=== PATIENT | female | born 1995 | race Two or more races ===

== ENCOUNTER 2024-03-08 03:43 | Observation (INO) | payer MEDICAID, SELFPAY ==
[2024-03-08] VITALS (64 sets, daily range): BP systolic 97–107; BP diastolic 57–65; PULSE 78–97; RESP 16–97; TEMP 36.9–37; O2SAT 93–98; BMI 33.5
--- NOTE | 2024-03-08 04:30 | XR_ITS ---
Examination: Complete OB ultrasound greater than 14 weeks Date and time of exam: March 08, 2024 1736 hrs. Indications: Abdominal pain beginning today Findings: Viable intrauterine single fetus with single amniotic sac presentation Vertex, transverse, maternal right Cardiac motion 137 BPM Placenta posterior grade 1 Umbilical cord insertion seen Amniotic fluid index 15.8 cm Cervix 3.4 cm Ovaries obscured by bowel gas. Composite estimated gestational age based on BPD, head circumference, abdominal circumference, femur length is 35 weeks 0 days Estimated weight 2569.6 g. Survey of intracranial anatomy, spinal anatomy, abdominal anatomy, four-chamber heart performed with no abnormalities identified. Impression: Viable intrauterine gestation vertex, transverse, maternal right Recommend repeat limited MARCI sonogram at this time with a second medical laboratory technologist to confirm presentation Estimated gestational age 35 weeks 0 days Estimated weight 2569.6 g.
--- NOTE | 2024-03-08 08:02 | PRELIM_ITS ---
Obstetric ultrasound. March 08, 2024 0536 hours Clinical history: Abdominal pain.Comparison: No frances or study is available for comparison. Findings:There is a gravid uterus with a live fetus in vertex ( transverse) maternal right presentation of mean gestational age 35 weeks and 0 days (by biometr y). cardiac activity is present at a heart rate of 137 beats per minute. The placenta is training facilitator ior in location, maturity grade 1. There is no evidence of placenta previa or retroplacental hemorrha ge. Amniotic fluid is adequate (PARAS = 15.8 cm). Estimated weight is 2569.6 grams+/- 380 grams. Estimated due date by ultrasound is 04/12/2024.Cervical length is 3.4 cm Impression:Gravid uterus wit h a single live fetus in vertex (transverse) maternal right presentation of mean gestational age 35 w eeks and 0 days. Report Electronically Signed By: Dawood Camacho 03/08/2024 8:02:30 AM [EST]
== END 2024-03-08 08:28 | disposition home or self-care (01) ==
PROVIDERS: Admitting Provider Obstetrics & Gynecology; Visit Provider Obstetrics & Gynecology
DX: O26.893 Other specified pregnancy related conditions, third trimester (principal); R10.9 Unspecified abdominal pain; Z3A.35 35 weeks gestation of pregnancy
CPT/HCPCS: 59025; 59899; 76805

== ENCOUNTER 2024-04-08 21:30 | Inpatient (IN) | payer MEDICAID, SELFPAY ==
[2024-04-08 21:41] VITALS: BMI 32.5
[2024-04-08 22:08] VITALS: BP 108/62; PULSE 85; TEMP 36.9
[2024-04-08 22:26] LABS: Basophils % (Auto) 0 % (0-2.5); Eosinophils % (Auto) 0 % (0-10); Hematocrit 32.9 % (36.0-46.0); Hemoglobin 11.8 g/dL (12.0-16.0); Immature Granulocytes % (Auto) 1 % (0-0); Immature Granulocytes Auto 0.04 Thou/mm3 (0.00-0.00); Lymphocytes # (Auto) 1.4 Thou/mm3 (1.0-4.8); Lymphocytes % (Auto) 18 % (10-50); Mean Corpuscular HGB Conc 35.9 g/dl (31.0-37.0); Mean Corpuscular Hemoglobin 32.4 pg (25.0-35.0); Mean Corpuscular Volume 90 fL (80-100); Monocytes # (Auto) 0.6 Thou/mm3 (0.0-0.8); Monocytes % (Auto) 8 % (0-12); Neutrophils # (Auto) 5.7 Thou/mm3 (1.8-7.7); Neutrophils % (Auto) 73 % (37-80); Nucleated Red Blood Cell % 0 /100 WBC (0); Platelet Count 225 Thou/mm3 (140-440); Red Blood Count 3.64 Miln/mm3 (4.00-5.20); White Blood Count 7.8 Thou/mm3 (3.6-11.0)
[2024-04-08] MEDS: DINOPROSTONE 10 MG VAG.SUPP VAGINAL (22:33)
[2024-04-08 23:27] LABS: Syphilis Nonreactive (Nonreactive)
[2024-04-09] VITALS (216 sets, daily range): BP systolic 94–187; BP diastolic 52–134; PULSE 57–118; RESP 15–21; TEMP 36.6–37.3; O2SAT 76–100
[2024-04-09 00:45] LABS: Amphetamine/Metham Scrn,Ur OB Negative (Negative); Benzoylecgonine Screen, Ur OB Negative (Negative); Opiate Screen,Urine OB Negative (Negative); THC Screen,Urine OB Negative (Negative)
--- NOTE | 2024-04-09 01:37 | PD.LDHP ---
Documentation for date of: 04/09/24 OB Labor/Induct. HPI History of Present Illness Chief complaint: elective IOL : 3 Para: 1 Term pregnancies: 1 pregnancies: 0 Living children: 0 History of Abortions: Spontaneous and Elective: 1 History of Vaginal deliveries: 1 History of sections: No History of : No Date of last menstrual period: 07/19/23 CESAR: 04/14/24 Gestational Age (weeks): 39 Gestational Age (days): 2 Gestational age based on last menstrual period: 37 Indication for induction: other (elective) History of present illness: Patient presents for scheduled IOL. No painful/regular ctx, no LOF, no vaginal bleeding. Feels normal movement. History of Present Dating criteria: based on 1st trimester US only Adequate Care: Yes Ultrasounds: normal mid trimester US Obstetrical complications: none and other (An early ultrasound showed possible vasa previa, patient had referral to [facility] and subsequent ultrasounds showed NO vasa previa, placenta posterior) Medical complications: none Narrative: G1: 05/30/2018 term VAVD 6lb0oz G2: 12/04/2021 early sab G3: current Labs Labs: Negative: Hepatitis B, HIV, Chlamydia, Gonorrhea and Group Beta Strep Narrative: Normal 2hr glucose testing Review of Systems Review of Systems Narrative Review of Systems: Review of Systems Systems Reviewed: All systems reviewed, normal except as documented Constitutional Constitutional: Denies body ache(s), Denies chills, Denies fever(s) and Denies headache(s) ENT Ears, Nose, Mouth, and Throat: Denies headache(s) and Denies vertigo Cardiovascular Cardiovascular: Denies chest pain, Denies palpitations, Denies dyspnea and Denies syncope Respiratory Respiratory: Denies cough, Denies dyspnea Gastrointestinal Gastrointestinal: Denies nausea and Denies vomiting Neurologic Neurologic: Denies convulsions, Denies headache(s), Denies other visual disturbances, Denies syncope and Denies vertigo Past Medical History Family History OTHER FAMILY HX: Mother and grandparents have diabetes Surgical History SURGICAL: Negative Section OTHER SURGICAL HX: Breast augmentation Social History SOCIAL: Denies tobacco/ETOH/illicit drug use No hx of STIs Past Medical History Comments PMH COMMENT: Starting BMI 27 Meds Home Medications and Allergies Home Medications ?Medication ?Instructions ?Recorded ?Confirmed ?Type vits no.130-ferrous fum 1 tab PO DAILY 12/21/23 04/08/24 History 27 mg iron-folic acid 800 mcg tablet ( Vitamin) Allergies Allergy/AdvReac Type Severity Reaction Status Date / Time No Known Allergies Allergy Verified 04/08/24 22:19 OB Exam Physical Exam Vital signs: Temp Pulse BP 98.4 F 82 122/58 L 04/08/24 22:08 04/09/24 01:21 04/09/24 01:21 Narrative: General: well developed, well nourished, no acute distress, conversant Cardiac: normal heart rate Lungs: breathing without distress Abdomen: soft, gravid, non-tender, no rebound or guarding Extremities: no edema BLE Detailed Labor and Delivery Exam Dilation (cm): 1 Effacement (%): 0 Cervix position: posterior station: -3 Presentation: Vertex Membranes: intact monitor accelerations: 15x15 monitor decelerations: None termite control service representative variability: Moderate (11-25) Contraction frequency (min): irregular OB Results Labs 04/08/24 21:50 Labs: Short CBC 04/08/24 Range/Units 21:50 WBC 7.8 (3.6-11.0) Thou/mm3 Hgb 11.8 L (12.0-16.0) g/dL Hct 32.9 L (36.0-46.0) % Plt Count 225 (140-440) Thou/mm3 OB Assessment & Plan Assessment and Plan (1) Encounter for elective induction of labor: Status: Acute Assessment and plan: Patient is a 28yo with SIUP at 39w2d presenting for scheduled IOL, elective. SCE: 1/thick/high. Vitals wnl, benign exam. Reassuring assessment overall. EFW 7lb by [place]. care: Good care with [facility], records available and reviewed PMhx/PNC significant for: Hx of VAVD with first delivery, starting BMI 27 Plan: -Admit to L&D -Establish IV, routine labs -CEFM -Regular diet [id number], then clear liquid diet in labor -Vehicle Leasing And [employer]ental Manager/consent re: iol and -GBS status: negative -Will initiate IOL with: cervidil -Anticipate -Safe to proceed Sarah Lopez MD
[2024-04-09] MEDS: MISOPROSTOL 50 mCg TABLET 25 MCG VAGINAL (11:09)
--- NOTE | 2024-04-09 11:13 | PD.LDPN ---
Documentation for date of: 04/09/24 OB Labor Progress Note Pelvic Exam Dilation (cm): 1 Effacement (%): 0 station: -3 Contractions Contraction frequency: irregular Assessment and Plan Comments: Intrapartum Note Patient doing well, feels some cramping in her back but not too uncomfortable. Cervidil came out at 1030. Vitals wnl, afebrile Cat I FHRT Ctx q5min SCE: /-2. Cook ann balloon placed (only uterine balloon filled with 40cc sterile water) without incident, well tolerated. 25mcg cytotec placed PV. Plan to await ann bulb falling out and re-check cervix Discussed ok for epidural any time, or IV fentanyl early in labor course if desired Clear liquid diet CEFM Safe to proceed Sarah Lopez MD
[2024-04-09] MEDS: fentaNYL CIT INJ 50 mCg/ML AMP 2ML 100 MCG IV (11:19)
[2024-04-09] MEDS: RINGERS LACTATED 1000 ML 1,000 ML 125 ML IV (15:18)
[2024-04-09] MEDS: OXYTOCIN in NS 30 units 30 UNIT/500 ML BAG IV (17:21)
--- NOTE | 2024-04-09 18:10 | PD.LDPN ---
Documentation for date of: 04/09/24 OB Labor Progress Note Pelvic Exam Dilation (cm): 5 Effacement (%): 50 station: -2 Amniotic membrane status: Ruptured Assessment and Plan Comments: Patient doing well, comfortable with epidural. IV pitocin was initiated and titrating up slowly. Vitals wnl, afebrile Cat I FHRT SCE: 50/-2, AROM performed with clear fluid noted, well tolerated Plan: -Continue to titrate pitocin per protocol to obtain adequate ctx pattern -CEFM -Continue to closely observe -Anticipate -Safe to proceed Sarah Lopez MD
[2024-04-09] MEDS: LIDOCAINE HCL 1% 20 ML VIAL INFL (20:55)
[2024-04-09] MEDS: CARBOPROST TROMETH INJ 250 MCG/ML VIAL IM (21:03)
[2024-04-09] MEDS: TRANEXAMIC ACID 1,000 MG IVPB 1,000 MG/100 ML BAG 200 MG IV (21:08)
[2024-04-09] MEDS: MISOPROSTOL 200 mCg TABLET 800 MCG PR (21:16)
[2024-04-09] MEDS: OXYTOCIN in NS 20 units 20 UNIT/1,000 ML BAG 125 UNIT IV (21:30)
[2024-04-09] MEDS: DIPHENOXYLATE/ATROP SULF 1 TAB PO (21:33)
[2024-04-09] MEDS: IBUPROFEN TAB 400 MG TABLET 800 MG PO (21:47)
[2024-04-09] MEDS: BENZO/LANO/ALOE (Dermoplast) 60 GM CAN 1 SPRAY TOP (21:48)
--- NOTE | 2024-04-09 21:53 | PD.LDDELS ---
Data ([facility]) Data Hx Section: No : 2 Para: 1 Term: 1 : 0 : 0 Delivery Data ([facility]) Labor Data Stimulated/Augmented: Yes Induction: Yes Method: Oxytocin ROM Date: 04/09/24 ROM Time: 17:56 Rupture Type: AROM Amniotic Fluid: Clear Delivery Data Labor Onset Stage 1 Date: 04/09/24 Labor Onset Stage 1 Time: 17:56 Labor Onset Stage 2 Date: 04/09/24 Labor Onset Stage 2 Time: 20:40 Delivery Date: 04/09/24 Delivery Time: 20:52 Placenta Delivery Date: 04/09/24 Placenta Delivery Time: 20:59 Delivered by: Sarah Lopez Delivery nurse: Kyaw Martin Other staff at delivery: Nursery Nurse Other staff at delivery: Selma Young Delivery Method Delivery: Vaginal Delivery Type: Spontaneous Presentation: Vertex Anesthesia Type Primary Anesthesia: Epidural Secondary Anesthesia: Local Placenta Placenta Delivery: Spontaneous EBL Estimated blood loss (ml): 600 Additional Procedures Patient is a 28yo [id number] s/p at 39+2wk after undergoing elective IOL, delivering at 2051 on 04/09/2024. Delivery complicated by PPH, EBL 600ml. On presentation, SCE was 1cm. She progressed with cervidil, nan bulb and cytotec, and then pitocin augmentation at 2mu to C/C/0 at which point she began pushing. She received an epidural. With good maternal pushing efforts, infant's head delivered OA and restituted MATTEO. Left anterior shoulder delivered easily followed by posterior shoulder and corpus. had spontaneous cry and was vigorous. Apgars 9/9. placed on maternal abdomen where nose/mouth were suctioned and infant dried/stimulated. After approximately 1 minute, cord was clamped x2 and cut by FOB. Cord blood collected for typing. Patient began bleeding briskly, and since with fundal massage and cord traction, placenta did not immediately deliver, manual extraction of placenta was performed to address the bleeding. A good plane was developed and the placenta was removed intact with 3 vessel centrally inserted cord. One sweep within uterus retrieved a few small fragments of membranes, but no other POCs retained. Vigorous bimanual massage performed and IV pitocin given wide open . Hembate 0.25mg IM and TXA 1g IV were given. With these measures, fundus then firmed to u-2cm and hemostasis was achieved. Inspection of perineum and vagina revealed bilateral labial lacerations (the left labial lip popped open ) and small 2nd degree midline perineal laceration, which were all repaired in routine fashion with 4-0 and 3-0 vicryl (respectively) after anesthetizing with 1% lidocaine with excellent reapproximation and total hemostasis achieved. Fundus remained firm. 800mcg cytotec placed AL at the end of the procedure for continued ppx against atony. Will give immodium to counteract side effect of hemabate. All counts correct x2. Mom and infant were doing well when I left the room. Sarah Lopez MD Complications Complications: PPH, EBL 600ml. [place] Data ([facility]) Data Gender: Male Weight Grams: 3635 1 Minute Total: 9 5 Minute Total: 9
[2024-04-10] VITALS: BP 103/63; PULSE 87; RESP 16; TEMP 37.3; O2SAT 97
[2024-04-10 04:00] VITALS: BP 103/64; PULSE 75; RESP 16; TEMP 37.1; O2SAT 97
[2024-04-10] MEDS: IBUPROFEN TAB 400 MG TABLET 800 MG PO ×2 (04:19→22:26)
--- NOTE | 2024-04-10 04:26 | PC.NURSE ---
04/10/24 0420: During assessment pt. states her pain in her perineum where she received stitches is burning, 9/10 pain. Perineum assessed with no other abnormal findings. Pt. used dermaplast topical anesthetic spray, RN administered pain medication and provided pt. with an ice pack for perineum and additional for later use.
[2024-04-10 06:08] LABS: Basophils % (Auto) 0 % (0-2.5); Eosinophils % (Auto) 0 % (0-10); Hematocrit 29.9 % (36.0-46.0); Hemoglobin 10.7 g/dL (12.0-16.0); Immature Granulocytes % (Auto) 1 % (0-0); Immature Granulocytes Auto 0.09 Thou/mm3 (0.00-0.00); Lymphocytes # (Auto) 1.5 Thou/mm3 (1.0-4.8); Lymphocytes % (Auto) 10 % (10-50); Mean Corpuscular HGB Conc 35.8 g/dl (31.0-37.0); Mean Corpuscular Hemoglobin 32.4 pg (25.0-35.0); Mean Corpuscular Volume 91 fL (80-100); Monocytes # (Auto) 1.1 Thou/mm3 (0.0-0.8); Monocytes % (Auto) 7 % (0-12); Neutrophils # (Auto) 12.7 Thou/mm3 (1.8-7.7); Neutrophils % (Auto) 82 % (37-80); Nucleated Red Blood Cell % 0 /100 WBC (0); Platelet Count 177 Thou/mm3 (140-440); RDW Standard Deviation 43.2 fL (36.4-46.3); White Blood Count 15.4 Thou/mm3 (3.6-11.0)
--- NOTE | 2024-04-10 07:09 | PC.NURSE ---
Dr. Lopez called and updated on wbc 7.8 to 15.4, No new orders
[2024-04-10 08:00] VITALS: BP 97/60; PULSE 84; RESP 17; TEMP 36.7; O2SAT 97
[2024-04-10] MEDS: DOCUSATE SOD 100 MG CAPSULE PO ×2 (08:48→21:36)
[2024-04-10] MEDS: PRENATAL VITAMIN/FE FUM/FA TABLET 1 TAB PO (08:48)
[2024-04-10] MEDS: ACETAMINOPHEN 325 MG TABLET 650 MG PO (11:37)
[2024-04-10 12:00] VITALS: BP 114/70; PULSE 80; RESP 16; TEMP 36.7; O2SAT 97
[2024-04-10 16:00] VITALS: BP 98/62; PULSE 77; RESP 16; TEMP 36.6; O2SAT 98
--- NOTE | 2024-04-10 16:09 | PC.SS ---
SHOP ESTIMATOR conducted bedside contact with the patient to address nursing referral indicating patient was late to care.? Patient denied late to care.? Patient stated that she began OB visits with Dr. Cross at week 5 of .? Patient continue OB services with Dr. Cross until patient became dissatisfied with service.? Patient then transitioned to OB services with Dr. Sotomayor, [facility].? [place] is the patient?s second child.? FOB, Olvin Wells; will be involved with the rearing of the child.? Patient is aligned with WIC, SNAP and TANF.? Patient denies history of alcohol/drug abuse.? Patient denies CWS intervention.? Patient denies episodes of domestic violence.? Patient denies possessing a history of mental health, reports no current possession of depression or anxiety.? Patient plans on combo feeding the .? Patient has access to appropriate supplies and equipment; to include a car seat.? Family will provide transportation upon discharge.? Patient describes possessing support system consisting of parents and FOB.? No further intervention required at this time, bilingual social worker will be available to address any further concerns.? SHOP ESTIMATOR updated bedside nurse.?
[2024-04-10] MEDS: bisacodyL 10 MG SUPP PR (16:24)
[2024-04-10 19:45] VITALS: BP 107/72; PULSE 80; RESP 16; TEMP 37; O2SAT 98
[2024-04-11 03:59] VITALS: BP 106/66; PULSE 68; RESP 16; TEMP 36.6; O2SAT 96
[2024-04-11 07:45] VITALS: BP 105/67; PULSE 67; RESP 18; TEMP 36.4; O2SAT 98
[2024-04-11] MEDS: IBUPROFEN TAB 400 MG TABLET 800 MG PO (08:16)
[2024-04-11] MEDS: PRENATAL VITAMIN/FE FUM/FA TABLET 1 TAB PO (08:16)
[2024-04-11] MEDS: DOCUSATE SOD 100 MG CAPSULE PO (08:16)
[2024-04-11 11:15] VITALS: BP 101/64; PULSE 63; RESP 16; TEMP 36.6; O2SAT 98
--- NOTE | 2024-04-11 12:09 | PD.LDDS ---
DS: Providers Provider Date of admission: 04/08/24 21:30 Primary care physician: Physician No Primary/Family Admitting Provider: Sarah Lopez MD Attending Provider on Admission: Sarah Lopez MD Consults: 04/09/24 21:47 Referral Routine Comment: Attending Provider on DC: Sarah Lopez MD Discharging Provider: Sarah Lopez MD DS: Diagnosis Discharge Diagnosis (1) Encounter for elective induction of labor: Status: Acute (2) hemorrhage: Status: Acute Problem List Completed Was Problem List Reviewed/Reconciled?: Yes Summary/Hosp Course Brief History: Patient is a 28yo [id number] s/p at 39+2wk after undergoing elective IOL, delivering at 2051 on 04/09/2024. Delivery complicated by PPH, EBL 600ml. She has had an uncomplicated course, meeting all milestones and feels ready for discharge home. She is ambulating without lightheadedness, tolerating regular diet no n/v, spontaneously voiding without issue. She has no chest pain or shortness of breath. No fevers or chills. Minimal, appropriate discomfort. Vitals normal, benign exam. Hemodynamically stable with no evidence of infection. PP Hgb 10.7. Status at Discharge Functional status at discharge: independent ambulation Overall status at discharge: patient is back to baseline Time Spent with Patient Time attestation: Total time spent providing and/or coordinating discharge services: Exam Vital Signs Temp Pulse Resp BP Pulse Ox O2 Del Method 97.8 F 63 16 101/64 98 Room Air 04/11/24 11:15 04/11/24 11:15 04/11/24 11:15 04/11/24 11:15 04/11/24 11:15 04/11/24 11:15 Narrative Exam General: well developed, well nourished, no acute distress, conversant Cardiac: normal heart rate Lungs: breathing without distress Abdomen: soft, post-gravid, non-tender, no rebound or guarding, Fundus firm at u-3cm. Extremities: no pain with palpation of calves, trace edema of BLE Discharge Plan Plan Patient Disposition: HOME (Self Care) Patient condition on transfer: Stable Prescriptions/Referrals Prescriptions/Med Rec: New ibuprofen 800 mg tablet 800 mg PO Q8H PRN (Reason: See Comments) 10 Days Qty: 30 0RF Continued Vitamin 27 mg iron- 800 mcg tablet 1 tab PO DAILY Patient Comments: take 1 tablet by mouth once daily Referrals: No Primary/Family,Physician [Primary Care Provider] - Patient/Caregiver Discharge Instructions Discharge Activity: activity as tolerated and other Other Discharge Activity Instructions:: vaginal rest and no heavy lifting more than 10 pounds for 6 weeks Other Discharge Diet Instructions: regular diet Education Materials: After a Vaginal Print Language: Nigerien Activity Restrictions/Additional Instructions: follow up in 4 weeks for visit, call clinic for appointment Stand Alone Forms: Elisabeth Award Info., Patient Portal Info Letter Discharge Order Discharge Orders: Discharge (Routine); Ordered 04/11/24 Ordered By: Sarah Lopez Planned Discharge Date 04/11/24 (2) hemorrhage Qualifiers: hemorrhage type: other immediate Qualified Code(s): O72.1 - Other immediate hemorrhage
== END 2024-04-11 15:00 | disposition home or self-care (01) | DRG 560 ==
LOC: S4SX 04-09 21:53 → S4NX 04-09 23:40
PROVIDERS: Admitting Provider Obstetrics & Gynecology; Visit Provider Obstetrics & Gynecology
DX: O70.1 Second degree perineal laceration during delivery (principal); O72.1 Other immediate postpartum hemorrhage; Z37.0 Single live birth; Z3A.39 39 weeks gestation of pregnancy
CPT/HCPCS: 36415; 59409; 80307; 85025; 86780; 86850; 86900; 86901; 94762; J2590; J2795; J3010; J3490; J7120; S0191; A9270